=== PATIENT | male | born 1960 | race Caucasian/White ===

== ENCOUNTER 2018-11-23 08:41 | Emergency (ER) | payer OTHER ==
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
== END 2018-11-23 11:10 | disposition home or self-care (01) ==
LOC: JD.ED 08:41
DX: R33.9 Retention of urine, unspecified (principal)
CPT/HCPCS: 51702; 81001; 99283